=== PATIENT | female | born 1985 | race Caucasian/White ===

== ENCOUNTER 2018-04-06 14:44 | Outpatient (CLI) | payer OTHER ==
[~2018-04-06] VITALS: Ht 162.6 cm; Wt 62.9 kg
[2018-04-06 14:57] VITALS: Ht 162.6 cm; Wt 62.9 kg
[2018-04-06 14:58] VITALS: BP 108/65; PULSE 74
--- NOTE | 2018-04-06 16:54 | PN ---
Triage Information Date/Time Reason for visit: Uterine contractions Weeks of Gestation 26+ /Para 2/1 Diabetes: none Hypertention: none Objective Vital Signs Date Temp Pulse Resp B/P (MAP) Pulse Ox O2 O2 Flow FiO2 Time Delivery Rate 04/06/18 98.5 74 108/65 Room Air 14:58 (79) Heart Rate: 140's Contractions: None Results/Medications Result Diagram: 04/06/18 1525 Results 24 hrs Laboratory Tests Test 04/06/18 15:20 04/06/18 15:25 04/06/18 15:40 Urine Color YELLOW Urine Clarity CLOUDY A Urine pH 7.0 Urine Specific Harmony 1.010 Urine Ketones NEGATIVE Urine Nitrite NEGATIVE Urine Bilirubin NEGATIVE Urine Urobilinogen NEGATIVE Urine Leukocyte Esterase 1+ H Urine Microscopic RBC 0 Urine Microscopic WBC 2 Urine Squamous Epithelial Cells MODERATE Urine Bacteria MODERATE Urine Hemoglobin NEGATIVE Urine Glucose NEGATIVE Urine Total Protein NEGATIVE White Blood Count 13.1 H Red Blood Count 3.56 L Hemoglobin 11.1 L Hematocrit 33.7 L Mean Corpuscular Volume 94.7 Mean Corpuscular Hemoglobin 31.2 Mean Corpuscular Hemoglobin Concent 32.9 Red Cell Distribution Width 13.1 Platelet Count 222 Mean Platelet Volume 10.8 H Immature Granulocytes % 0.800 H Neutrophils % 78.5 H Lymphocytes % 14.2 L Monocytes % 5.0 Eosinophils % 1.2 Basophils % 0.3 Nucleated Red Blood Cells % 0.0 Immature Granulocytes # 0.110 H Neutrophils # 10.3 H Lymphocytes # 1.9 Monocytes # 0.7 Eosinophils # 0.2 Basophils # 0.0 Nucleated Red Blood Cells # 0.0 Fibronectin NEGATIVE Disposition: Discharge Assessment/Plan CXL 4 cm FFN neg SAMINA 19 -->discharged with precautions --->Questions answered --->Precautions discussed SHAKEEL LEONARDO M.D. Apr 06, 2018 16:54
--- NOTE | 2018-04-06 17:01 | TRIAGE ---
OB Triage Datetime Report Generated by CPN: 04/06/2018 17:01 Datetime: 04/06/2018 15:38 Labor Evaluation Frequency: 0 Pattern: Normal: <= 5 Contractions in 10 Minutes Resting Tone Maribel: Relaxed Heart Rate FHR Baseline Rate: 150 Monitor Mode: External US Variability: Moderate 6-25 bpm Accelerations: 10X10 Decelerations: None Category: Category I Datetime: 04/06/2018 14:52 Time of Arrival: 04/06/2018 14:37 Arrived By: Wheelchair Arrived From: Home Chief Complaint: left lower abdominal/groin pain Movement: Present Contractions: Denies/Absent Rupture of Membranes: Denies Vaginal Bleeding: None Vaginal Discharge: Denies Recent Sexual Intercouse: Denies Abdominal Trauma: Not Applicable Patient Complaints: Other Time Provider Notified: 04/06/2018 15:31 Provider Notified: DR LEONARDO Initial Plan: NST BPP SAMINA CERVICAL LENGHT Datetime: 04/06/2018 14:51 Assessment Type: Triage Maternal Assessment Level of Consciousness: Fully Conscious DTR's/Clonus: DTRs 2+; No Clonus Headache: Denies Blurred Vision: No Respiratory Effort: Unlabored; Regular Rhythm; Equal Expansion Breath Sounds, Left: Clear and Equal Breath Sounds, Right: Clear and Equal Nausea/Vomiting: Denies RUQ Epigastric Pain: Denies Lower Extremities Edema: None Degree: None Upper Extremities Edema: None Facial Edema: None Fall Risk Assessment History of Falling: (0) No Secondary Diagnosis: (0) No Ambulatory Aid: (0) Bedrest/Nurse Assist IV Therapy: (0) No Gait: (0) Normal/Bedrest/Immobile Mental Status: (0) Oriented to Own Ability Fall Score: 0 Fall Risk Score Definition: No Risk: No action required Datetime: 04/06/2018 14:45 Stage of : OB Triage
== END 2018-04-06 17:15 | disposition home or self-care (01) ==
LOC: OBT 14:44 → L-D 14:45 → OBT 17:15
PROVIDERS: ATTEND Obstetrics & Gynecology
DX: O62.9 Abnormality of forces of labor, unspecified (principal); Z3A.26 26 weeks gestation of pregnancy
CPT/HCPCS: 76815; 76817; 81001; 82731; 85025; Z7500; G0463